=== PATIENT | female | born 1955 | race Caucasian/White ===

== ENCOUNTER 2022-01-25 13:00 | Outpatient (RCR) | payer MEDICARE, BC, SELFPAY | END 2022-09-29 23:59 | disposition home or self-care (01) | PROVIDERS: PCP Family Medicine; Visit Provider Family Medicine | DX: M77.12 Lateral epicondylitis, left elbow (principal); Z51.89 Encounter for other specified aftercare | CPT/HCPCS: 97035; 97110; 97140; 97165; X5282 ==